=== PATIENT | female | born 1970 | race Caucasian/White ===

== ENCOUNTER 2018-08-18 15:55 | Outpatient (CLI) | payer OTHER | END 2018-08-18 15:56 | disposition home or self-care (01) | LOC: BICMAMMO 15:55 | PROVIDERS: ATTEND Family Medicine | DX: Z12.31 Encounter for screening mammogram for malignant neoplasm of breast (principal) | CPT/HCPCS: 77063; 77067 ==

== ENCOUNTER 2020-07-19 08:34 | Outpatient (CLI) | payer OTHER ==
--- NOTE | 2020-07-19 09:50 | MMO ---
Bilateral MAMMO Bilat Screen [facility]. CLINICAL HISTORY: Patient is 49 years old and is seen for screening. The patient has no family history of breast cancer. The patient has no personal history of cancer. VIEWS: The views performed were: bilateral craniocaudal with tomosynthesis and bilateral mediolateral oblique with tomosynthesis. FILMS COMPARED: The present examination has been compared to prior imaging studies performed at [facility] on 01/25/2014, at [facility] on 08/18/2018, and at [facility] on 10/01/2011. This study has been interpreted with the assistance of computer-aided detection. MAMMOGRAM FINDINGS: There are scattered fibroglandular densities. There are no suspicious masses, suspicious calcifications, or new areas of architectural distortion. IMPRESSION: THERE IS NO MAMMOGRAPHIC EVIDENCE OF MALIGNANCY. A ROUTINE FOLLOW-UP MAMMOGRAM IN 1 YEAR IS RECOMMENDED. THE RESULTS OF THIS EXAM WERE SENT TO THE PATIENT. ACR BI-RADS Category 1 - Negative MAMMOGRAPHY NOTE: 1. A negative mammogram report should not delay a biopsy if a dominant of clinically suspicious mass is present. 2. Approximately 10% to 15% of breast cancers are not detected by mammography. 3. Adenosis and dense breasts may obscure an underlying neoplasm. Reported by: IRIS RODRÍGUEZ MD Electonically Signed: [id number]
== END 2020-07-19 08:35 | disposition home or self-care (01) ==
LOC: BICMAMMO 08:34
PROVIDERS: ATTEND Family Medicine
DX: Z12.31 Encounter for screening mammogram for malignant neoplasm of breast (principal)
CPT/HCPCS: 77063; 77067

== ENCOUNTER 2021-10-17 13:35 | Outpatient (CLI) | payer OTHER | END 2021-10-17 13:36 | disposition home or self-care (01) | LOC: MRI 13:35 | PROVIDERS: ATTEND Family Medicine | DX: M51.9 Unspecified thoracic, thoracolumbar and lumbosacral intervertebral disc disorder (principal); M48.061 Spinal stenosis, lumbar region without neurogenic claudication; M48.07 Spinal stenosis, lumbosacral region | CPT/HCPCS: 72148 ==

== ENCOUNTER 2021-10-22 14:30 | Inpatient (IN) | payer OTHER ==
[2021-10-22] MEDS ORDERED: Acetaminophen 325 MG TAB PO PRN (18:20)
[2021-10-22] MEDS ORDERED: traMADol HCl 50 MG TAB PO PRN (18:21)
[2021-10-22] MEDS ORDERED: Acetaminophen/Codeine 30-300mg Tablet PO PRN (18:22)
[2021-10-22] MEDS ORDERED: HYDROcodone/Acetaminophen 5/325 mg Tablet PO PRN (18:22)
[2021-10-22 18:23] VITALS: BMI 26.6
[2021-10-22] MEDS ORDERED: Morphine 4 MG/ML VIAL SLOW IVP PRN (18:23)
[2021-10-22 18:58] LABS: #Eosinphils 0.1 thou/uL (0.0-0.7); #Lymphocytes 2.9 thou/uL (1.20-3.40); #Monocytes 0.5 thou/uL (0.11-0.59); #Neutrophils 3.7 thou/uL (1.40-6.50); %Basophils 0.6 % (0.0-1.0); %Eosinophils 1.4 % (0.0-10.0); %Lymphocytes 39.9 % (21.0-51.0); %Monocytes 6.8 % (0.0-10.0); %Neutrophils 51.3 % (42.0-75.0); Hemoglobin 12.8 g/dL (12.0-16.0); Mean Corpuscular HGB CONC 31.8 g/dL (32.0-36.0); Mean Corpuscular Hemoglobin 31.1 pg (27.0-31.0); Mean Corpuscular Volume 97.8 fL (78.0-98.0); Mean Platelet Volume 7.4 fL (7.4-10.4); Platelet Count 318 thou/uL (130-400); RBC Distribution Width 12.3 % (11.5-14.5); Red Blood Cell (RBC) Count 4.12 mill/uL (4.20-5.40); White Blood Cell (WBC) Count 7.1 thou/uL (4.8-10.8)
[2021-10-22 19:24] LABS: Anion Gap 12 mmol/L (10-20); BUN (Urea Nitrogen) 13 mg/dL (9.8-20.1); Calc. Creatinine Clearance 101 mL/min (70-130); Calcium 9.3 mg/dL (7.8-10.44); Carbon Dioxide 27 mmol/L (22-29); Chloride 102 mmol/L (98-107); Glucose 91 mg/dL (70-105); Potassium 3.9 mmol/L (3.5-5.1); Sodium 137 mmol/L (136-145)
[2021-10-22] MEDS: Dexamethasone 4 MG TAB PO SCH (19:24)
[2021-10-22] MEDS ORDERED: hydrALAZINE 20 MG/ML VIAL SLOW IVP PRN (20:04)
[2021-10-22 20:30] LABS: INR-International Normal Ratio 0.9
[2021-10-22] MEDS: HYDROcodone/Acetaminophen 10/325 mg Tablet PO PRN (20:33)
[2021-10-22] MEDS: tiZANidine HCl 4 MG TAB PO PRN (20:33)
[2021-10-22 22:13] LABS: SARS-CoV-2 NAA Rapid Test Not Detected (NotDetected)
[2021-10-23] MEDS: Dexamethasone 4 MG TAB PO SCH ×4 (00:17→18:28)
[2021-10-23] MEDS: HYDROcodone/Acetaminophen 10/325 mg Tablet PO PRN ×2 (08:24→18:34)
[2021-10-23] MEDS ORDERED: Midazolam HCl 2 mg/2 ml Vial ONE ×2 (11:09→13:32)
[2021-10-23] MEDS ORDERED: Thrombin 5000 UNITS/5 ML VIAL ONE (12:33)
[2021-10-23] MEDS ORDERED: ceFAZolin 2 GM/DEX 5% 100 ML BAG ONE (12:34)
[2021-10-23] MEDS ORDERED: Fentanyl 100 MCG/2 ML VIAL ONE ×2 (13:32→16:36)
[2021-10-23] MEDS ORDERED: Ondansetron PF 4 MG/2 ML Vial ONE (13:40)
[2021-10-23] MEDS ORDERED: Rocuronium Bromide 10 MG/ML (10ML VIAL) ONE (13:40)
[2021-10-23] MEDS ORDERED: PROPOFOL 200 MG/20 ML VIAL ONE (13:40)
[2021-10-23] MEDS ORDERED: ePHEDrine 50 MG/ML VIAL ONE (13:40)
[2021-10-23] MEDS ORDERED: Dexamethasone 20 MG/5 ML VIAL ONE (13:40)
[2021-10-23] MEDS ORDERED: Phenylephrine 10 MG/ML VIAL ONE (13:40)
[2021-10-23] MEDS ORDERED: Lidocaine 1% PF 5 ML VIAL ONE (13:40)
[2021-10-23] MEDS ORDERED: HYDROmorphone 2 MG/ML VIAL ONE (14:11)
[2021-10-23] MEDS ORDERED: PHENYLEPHRINE-NS 100 MCG/ML 10 ML SYRINGE ONE (14:11)
[2021-10-23] MEDS ORDERED: SUGAMMADEX SODIUM 200 MG/2 ML VIAL ONE (15:08)
[2021-10-23] MEDS ORDERED: Ketorolac Tromethamine 30 MG/ML VIAL ONE (15:44)
[2021-10-23] MEDS ORDERED: Promethazine HCl 25 MG/ML VIAL IVPB PRN (15:50)
[2021-10-23] MEDS ORDERED: Meperidine HCl/PF 25 MG/ML VIAL SLOW IVP PRN (15:50)
[2021-10-23] MEDS ORDERED: Morphine Sulfate 2 MG/ML SYRINGE SLOW IVP PRN (15:50)
[2021-10-23] MEDS ORDERED: Promethazine HCl 25 MG/ML VIAL IM PRN (15:50)
[2021-10-23] MEDS ORDERED: HYDROmorphone 2 MG/ML VIAL SLOW IVP PRN (15:50)
[2021-10-23] MEDS ORDERED: PACU-Morphine 4MG/ML VIAL SLOW IVP PRN (15:50)
[2021-10-23] MEDS ORDERED: Ondansetron HCl/PF 4 MG/2 ML Vial IVP PRN (15:50)
[2021-10-23] MEDS: tiZANidine HCl 4 MG TAB PO PRN (21:11)
[2021-10-23] MEDS: ceFAZolin Sodium/D5W 2 GM in Premix Bag 1 BAG IVPB SCH (21:11)
[2021-10-24] MEDS: Dexamethasone 4 MG TAB PO SCH ×2 (00:53→06:18)
[2021-10-24] MEDS: HYDROcodone/Acetaminophen 10/325 mg Tablet PO PRN ×2 (00:53→06:17)
[2021-10-24] MEDS: ceFAZolin Sodium/D5W 2 GM in Premix Bag 1 BAG IVPB SCH (06:18)
[2021-10-24 08:32] VITALS: BP 112/71; TEMP 97.9
== END 2021-10-24 09:55 | disposition home or self-care (01) | DRG 520 ==
LOC: SURG A 17:54
PROVIDERS: ADMIT Surgery; ATTEND Surgery
PROC: 01NB0ZZ Release Lumbar Nerve, Open Approach (ICD-10-PCS; principal; 2021-10-23)
PROC: 0SB40ZZ Excision of Lumbosacral Disc, Open Approach (ICD-10-PCS; 2021-10-23)
PROC: 01NR0ZZ Release Sacral Nerve, Open Approach (ICD-10-PCS; 2021-10-23)
DX: M51.17 Intervertebral disc disorders with radiculopathy, lumbosacral region (principal); Z20.822 Contact with and (suspected) exposure to COVID-19; J30.2 Other seasonal allergic rhinitis; Z79.899 Other long term (current) drug therapy; Z88.1 Allergy status to other antibiotic agents; Z88.2 Allergy status to sulfonamides; Z98.890 Other specified postprocedural states
CPT/HCPCS: 36415; 76000; 80048; 85025; 85610; 85730; 93005; 93010; J1100; J1170; J1885; J2250; J2370; J2405; J2704; J3010; J3370; J3490; J8540; U0002

== ENCOUNTER 2022-10-09 11:02 | Outpatient (CLI) | payer BC | END 2022-10-09 11:03 | disposition home or self-care (01) | LOC: BICMAMMO 11:02 | PROVIDERS: ATTEND Family Medicine | DX: Z12.31 Encounter for screening mammogram for malignant neoplasm of breast (principal) | CPT/HCPCS: 77063; 77067 ==